=== PATIENT | female | born 1960 | race Caucasian/White ===

== ENCOUNTER → 2023-10-03 12:13 | Outpatient (REF) | payer OTHER, SELFPAY | LOC: WDC 12:13 | PROVIDERS: ATTENDING PHYSICIAN Obstetrics & Gynecology Gynecology; FAMILY PHYSICIAN Family Medicine | DX: Z12.31 Encounter for screening mammogram for malignant neoplasm of breast (principal) | CPT/HCPCS: 77063; 77067 ==

== ENCOUNTER → 2023-12-10 10:45 | Outpatient (REF) | payer OTHER, SELFPAY | LOC: HWRAD 10:45 | PROVIDERS: ATTENDING PHYSICIAN Family Medicine | DX: M79.89 Other specified soft tissue disorders (principal) | CPT/HCPCS: 76536 ==

== ENCOUNTER → 2024-02-15 11:34 | Outpatient (REF) | payer OTHER, SELFPAY | LOC: RAD 11:34 | PROVIDERS: ATTENDING PHYSICIAN Otolaryngology; FAMILY PHYSICIAN Family Medicine | DX: K11.8 Other diseases of salivary glands (principal) | CPT/HCPCS: 70491; Q9967 ==

== ENCOUNTER 2024-03-19 06:30 | Day surgery (SDC) | payer OTHER, SELFPAY ==
[2024-03-05 13:33] VITALS: BMI 22.3
[2024-03-19] VITALS (8 sets, daily range): BP systolic 96–111; BP diastolic 60–68; BMI 22.3
[2024-03-19] MEDS: NORMOSOL-R/PLASMALYTE-A 1000 IV (11:00)
== END 2024-03-19 17:04 | disposition home or self-care (01) ==
LOC: SDS 06:30
PROVIDERS: ATTENDING PHYSICIAN Otolaryngology; FAMILY PHYSICIAN Family Medicine
DX: D11.0 Benign neoplasm of parotid gland (principal); K11.9 Disease of salivary gland, unspecified
CPT/HCPCS: 42415; 88307; 36415; 93005; C9250

== ENCOUNTER → 2024-10-07 14:58 | Outpatient (REF) | payer OTHER, SELFPAY | LOC: WDC 14:58 | PROVIDERS: ATTENDING PHYSICIAN Obstetrics & Gynecology Gynecology; FAMILY PHYSICIAN Family Medicine | DX: Z12.31 Encounter for screening mammogram for malignant neoplasm of breast (principal); Z12.39 Encounter for other screening for malignant neoplasm of breast | CPT/HCPCS: 77063; 77067 ==